=== PATIENT | male | born 1950 | race Caucasian/White ===

== ENCOUNTER 2024-05-19 08:36 | Outpatient (AMB) | payer MEDICARE, SELFPAY ==
--- NOTE | 2024-05-19 08:37 | A.OFFVIS_ITS ---
Vital Signs 05/19/24 08:48 Height 5 ft 10 in Weight 192 lb 14.472 oz BMI 27.7 BP 90/62 Blood Pressure Location Rt brachial Position Sitting Respiration 18 Pulse 73 Pulse Source Pulse Oximeter Pulse Oximetry (%) 99 Oxygen Delivery Method Room Air Intake Visit Reasons: joint pain/CM APT Intake Note: Patient presents for joint pain. I feel bilateral knee pain and left knee is worse. Bilateral wrist and thumbs pain. 2 to 3 year ago feeling pain on my both knee. Wrist and thumbs started hurting 1 year ago. I take Motrin and Tylenol for pain and it helps short term. Allergies amoxicillin Allergy (Mild, Verified 05/19/24 08:44) Unknown Medication List - Last Reconciled 05/19/24 by Frank Colvin MD triamcinolone acetonide 40 mg IM DAILY HPI Comments Details: This is a 74-year-old male who presents for evaluation of arthritis. About 3 years ago patient started to have arthritic pains in his knees, generally worse on the left, intermittent pain and stiffness of his hands. He was evaluated by an orthopedist. He had bilateral knee steroid injections 3 years ago which helped. A year and a half later he had gel injections. They also held. Last November patient received bilateral knee gel injections. Per patient they were not very helpful. He states that his left knee josias and sometimes gives out. He also gets pain and stiffness of his hands. He had bilateral wrist steroid injections 3 months ago. Per patient they were quite effective. he takes turmeric to 50 mg once or twice a day. He is unaware of any family history of an autoimmune rheumatic disease. 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 Review of [place] [facility] [place] arthralgias, Denies joint swelling and Reports stiffness Physical Exam Vital Signs: Last Vital Signs Pulse 73 05/19/24 08:48 Resp 18 05/19/24 08:48 BP 90/62 05/19/24 08:48 Pulse Ox 99 05/19/24 08:48 Oxygen Delivery Method Room Air 05/19/24 08:48 BMI result Body Mass Index 27.7 Const General: cooperative, healthy appearing and comfortable Nutritional Appearance: overweight Orientation/consciousness: patient oriented x3 Limitations: no limitations HEENT Head: Yes normocephalic and Yes atraumatic Mouth: moist mucous membranes Resp Effort & Inspection: normal respiratory effort and able to speak in complete sentences Auscultation: clear to auscultation bilaterally Cardio Rate: regular rate Rhythm: regular rhythm Skin General skin exam: no rashes or lesions noted Neuro General: patient oriented x3 Extrem Other: Subtle osteoarthritic changes of both hands with no active synovitis and normal nailfold capillaroscopy Right knee crepitus, and pain with full flexion-extension Positive Adan's test on the left Assessment & Plan Assessment & Plan (1) Generalized osteoarthritis: Code(s): M15.9 - Polyosteoarthritis, unspecified Category: Medical Plan: This is a 74-year-old male who presents for evaluation of multiple joint pain and stiffness. Clinical picture consistent with generalized osteoarthritis. We discussed management of osteoarthritis. Including Tylenol, applying Voltaren gel, taking turmeric 2000 mg daily. (2) Osteoarthritis of left knee: Code(s): M17.12 - Unilateral primary osteoarthritis, left knee Category: Medical Qualifiers: Osteoarthritis type: primary Qualified Code(s): M17.12 - Unilateral primary osteoarthritis, left knee Plan: I would like to rule out a meniscal tear. Ordered left knee MRI Plan I spent 46 minutes reviewing patient's chart, evaluating patient, ordering diagnostic workup, counseling patient and documenting in the chart Orders: Orders MR knee LT wo con Today M23.209 - Derangement of unspecified meniscus due to old tear or injury, unspecified knee Coding Level of Care Code New Pt Level 4 (79771) Diagnoses Generalized osteoarthritis M15.9 Primary osteoarthritis of left knee M17.12 Osteoarthritis type: primary
[2024-05-19 08:48] VITALS: BP 90/62; PULSE 73; RESP 18; O2SAT 99; BMI 27.7
== END 2024-05-19 09:20 | disposition home or self-care (01) ==
PROVIDERS: Visit Provider Student in an Organized Health Care Education/Training Program
DX: M17.12 Unilateral primary osteoarthritis, left knee (principal)
CPT/HCPCS: 99204

== ENCOUNTER → 2024-05-19 08:36 | Outpatient (BNVA) | payer MEDICARE, SELFPAY | PROVIDERS: Visit Provider Student in an Organized Health Care Education/Training Program | DX: M17.12 Unilateral primary osteoarthritis, left knee (principal) | CPT/HCPCS: 99202 ==